=== PATIENT | female | born 1990 | race African-American/Black ===

== ENCOUNTER 2021-01-18 12:15 | Emergency (ER) | payer MEDICAID ==
[~2021-01-18] VITALS: Ht 167.6 cm; Wt 77.0 kg
[2021-01-18] MEDS ORDERED: DIPHENHYDRAMINE 50MG/ML VIAL IV ONE (12:45)
[2021-01-18] MEDS ORDERED: FENTANYL CITRATE/PF 50MCG/ML 2ML VIAL IV ONE (12:45)
[2021-01-18 13:00] LABS: BASOPHILS % 0.7 % (0.0-2.0); EOSINOPHILS % 0.7 % (0.0-5.0); HEMOGLOBIN. 14.8 g/dL (12.0-16.0); LYMPHOCYTES % 25.7 % (20.0-50.0); MEAN CORPUSCULAR HEMOGLOBIN 30.7 pg (28.0-32.0); MEAN CORPUSCULAR VOLUME 87.2 fL (81.0-99.0); MEAN PLATELET VOLUME 7.9 fl (7.4-10.4); MONOCYTES % 12.1 % (2.0-8.0); NEUTROPHILS % 60.8 % (40.0-76.0); PLATELET 413 x1000/uL (130-400); RED BLOOD CELL COUNT 4.81 mill/uL (4.2-5.4); RED CELL DISTRIBUTION WIDTH 14.2 % (11.6-14.6)
[2021-01-18 13:06] LABS: CHLORIDE 103 mEq/L (98-107)
[2021-01-18] MEDS ORDERED: IOHEXOL-300 100 ML BOTTLE ONE (14:58)
[2021-01-18] MEDS ORDERED: ONDA4TAB5 MT (15:14)
[2021-01-18 16:00] VITALS: BP 134/77
== END 2021-01-18 16:01 | disposition home or self-care (01) ==
LOC: ER 12:15
DX: R10.9 Unspecified abdominal pain (principal); W18.09XA Striking against other object with subsequent fall, initial encounter; Y93.89 Activity, other specified; Y92.9 Unspecified place or not applicable; J45.909 Unspecified asthma, uncomplicated; H40.9 Unspecified glaucoma; F17.210 Nicotine dependence, cigarettes, uncomplicated; H54.7 Unspecified visual loss; Z88.0 Allergy status to penicillin; Z79.01 Long term (current) use of anticoagulants; Z86.711 Personal history of pulmonary embolism; Z91.013 Allergy to seafood; Z91.041 Radiographic dye allergy status
CPT/HCPCS: 36415; 70450; 74177; 80053; 83690; 85025; 85730; 96374; 96375; 99285; J1200; J3010; Q9967